=== PATIENT | female | born 1950 | race Caucasian/White ===

== ENCOUNTER → 2016-11-27 | Outpatient (CLI) | payer MEDICARE, OTHER ==
[~2016-11-27] MED LIST: ASA CHILDREN'S81 MG PO; BENADRYL-DPS50 MG PO; CALTRATE-600 D600 MG PO; CO Q1060 MG PO; CYMBALTA60 MG PO; NEURONTIN DPS300 MG PO; NEURONTIN DPS600 MG PO; NORVASC5 MG PO; PROTONIX40 MG PO; QUESTRAN DPS4 GM PO; TIMOPTIC 0.5% DP5 ML OU; ULTRAM DPS50 MG PO; VITAMIN D400 UNI1 PO; WELLBUTRIN XL150 MG PO
== END | disposition home or self-care (01) ==
LOC: RAD.S 16:00
DX: R91.8 Other nonspecific abnormal finding of lung field (principal); J43.9 Emphysema, unspecified; R05 Cough